=== PATIENT | male | born 1940 | race Caucasian/White ===

== ENCOUNTER → 2019-03-02 | Outpatient (CLI) | payer OTHER | END | disposition home or self-care (01) | LOC: WOUNDCARE 00:07 → EDSTATUS 23:47 | DX: L89.303 Pressure ulcer of unspecified buttock, stage 3 (principal); L89.153 Pressure ulcer of sacral region, stage 3; R21 Rash and other nonspecific skin eruption; I10 Essential (primary) hypertension; E78.00 Pure hypercholesterolemia, unspecified; F03.90 Unspecified dementia, unspecified severity, without behavioral disturbance, psychotic disturbance, mood disturbance, and anxiety; N40.0 Benign prostatic hyperplasia without lower urinary tract symptoms; F17.290 Nicotine dependence, other tobacco product, uncomplicated ==

== ENCOUNTER → 2019-03-16 | Outpatient (CLI) | payer OTHER | END | disposition home or self-care (01) | LOC: WOUNDCARE 00:41 | DX: L89.153 Pressure ulcer of sacral region, stage 3 (principal); R21 Rash and other nonspecific skin eruption; I10 Essential (primary) hypertension; E78.00 Pure hypercholesterolemia, unspecified; N40.0 Benign prostatic hyperplasia without lower urinary tract symptoms; F03.90 Unspecified dementia, unspecified severity, without behavioral disturbance, psychotic disturbance, mood disturbance, and anxiety; F17.290 Nicotine dependence, other tobacco product, uncomplicated ==

== ENCOUNTER → 2019-04-01 | Outpatient (CLI) | payer OTHER | END | disposition home or self-care (01) | LOC: WOUNDCARE 02:00 | DX: L89.303 Pressure ulcer of unspecified buttock, stage 3 (principal); L89.153 Pressure ulcer of sacral region, stage 3; R21 Rash and other nonspecific skin eruption; I10 Essential (primary) hypertension; E78.00 Pure hypercholesterolemia, unspecified; N40.0 Benign prostatic hyperplasia without lower urinary tract symptoms; F03.90 Unspecified dementia, unspecified severity, without behavioral disturbance, psychotic disturbance, mood disturbance, and anxiety; F17.290 Nicotine dependence, other tobacco product, uncomplicated ==

== ENCOUNTER → 2019-04-08 | Outpatient (CLI) | payer OTHER | END | disposition home or self-care (01) | LOC: WOUNDCARE 00:47 | DX: L89.303 Pressure ulcer of unspecified buttock, stage 3 (principal); R21 Rash and other nonspecific skin eruption; I10 Essential (primary) hypertension; E78.00 Pure hypercholesterolemia, unspecified; N40.0 Benign prostatic hyperplasia without lower urinary tract symptoms; F03.90 Unspecified dementia, unspecified severity, without behavioral disturbance, psychotic disturbance, mood disturbance, and anxiety; F17.290 Nicotine dependence, other tobacco product, uncomplicated ==

== ENCOUNTER → 2019-04-15 | Outpatient (CLI) | payer OTHER | END | disposition home or self-care (01) | LOC: WOUNDCARE 02:11 | DX: L89.303 Pressure ulcer of unspecified buttock, stage 3 (principal); L89.153 Pressure ulcer of sacral region, stage 3; R21 Rash and other nonspecific skin eruption; I10 Essential (primary) hypertension; E78.00 Pure hypercholesterolemia, unspecified; N40.0 Benign prostatic hyperplasia without lower urinary tract symptoms; F03.90 Unspecified dementia, unspecified severity, without behavioral disturbance, psychotic disturbance, mood disturbance, and anxiety; F17.290 Nicotine dependence, other tobacco product, uncomplicated ==

== ENCOUNTER → 2019-04-22 | Outpatient (CLI) | payer OTHER | END | disposition home or self-care (01) | LOC: WOUNDCARE 13:43 | DX: L89.153 Pressure ulcer of sacral region, stage 3 (principal); R21 Rash and other nonspecific skin eruption; I10 Essential (primary) hypertension; E78.00 Pure hypercholesterolemia, unspecified; N40.0 Benign prostatic hyperplasia without lower urinary tract symptoms; F32.9 Major depressive disorder, single episode, unspecified; F17.290 Nicotine dependence, other tobacco product, uncomplicated ==